=== PATIENT | female | born 1940 | race Asian ===

== ENCOUNTER 2021-12-31 22:48 | Inpatient (IN) | payer MEDICARE ==
[~2021-12-31] VITALS: Ht 152.4 cm; Wt 58.1 kg
[~2021-12-31 22:48] MED LIST: AMIN30LI2 GT; APIX2.5T GT; ATOR10TA68 GT; DOCU-144 GT; DORZ10DR9 LEFT EYE; FAMO-279 GT; INSU100V7 SUBCUT; INSU100V9 SQ; LEVO88TA2 GT; LISI-209 GT; METO25TA6 GT; NEO/5DRO3 OP; SENN8.6T19 GT; SODI325T GT; TRAZ-250 GT; VENL50TA4 PO
[2021-12-31 23:10] VITALS: BP_SYST 129
[2022-01-01] MEDS ORDERED: NACL 0.9% 1,000 ML IV SCH (01:15)
[2022-01-01] MEDS ORDERED: PIPERACILLIN/TAZO 3.38 GM in D5W 50 ML IV ONE (01:15)
[2022-01-01] MEDS ORDERED: VANCOMYCIN HCL 1,000 MG in D5W 250 ML IV ONE (01:15)
--- NOTE | 2022-01-01 01:38 | NUR ---
Placed in room 2 . Placed on traffic monitor specialist, blood pressure machine and pulse oximeter. To gown for exam. Side rails up. Report given to Wanda ESPINOZA.
--- NOTE | 2022-01-01 01:40 | NUR ---
LAZARO Guzman at bedside examining patient.
[2022-01-01 01:54] LABS: BASOPHILS # (AUTO) 0.1 K/uL (0.0-0.2); BASOPHILS % (AUTO) 0.7 % (0.0-2.0); EOSINOPHILS # (AUTO) 0.2 K/uL (0.0-0.4); EOSINOPHILS % (AUTO) 2.2 % (0.0-4.0); HEMATOCRIT 36.2 % (36-48); HEMOGLOBIN 11.8 g/dL (12.0-16.0); LYMPHOCYTES # (AUTO) 1.7 K/uL (1.0-5.5); MEAN CORPUSCULAR HEMOGLOBIN 23 pg (27-31); MEAN CORPUSCULAR HGB CONC 33 % (32-36); MEAN CORPUSCULAR VOLUME 72 fL (79.0-98.0); MONOCYTES # (AUTO) 1.2 K/uL (0.0-1.0); MONOCYTES % (AUTO) 16.9 % (1.7-9.3); NEUTROPHILS # (AUTO) 4.1 K/uL (1.8-7.7); NEUTROPHILS % (AUTO) 56.2 % (40.0-70.0); PLATELET COUNT (AUTO) 258 K/uL (130-430); RED BLOOD CELL COUNT(AUTO) 5.03 MIL/uL (4.2-6.2); RED CELL DISTRIBUTION WIDTH 13.7 % (9.0-15.0); WHITE BLOOD COUNT (AUTO) 7.3 K/uL (4.8-10.8)
[2022-01-01 02:11] LABS: ANION GAP 6 (5-15); CALCIUM 7.9 mg/dL (8.4-11.0); CHLORIDE 101 mmol/L (98-107); CREATININE 0.99 mg/dL (0.55-1.30); GLUCOSE 113 mg/dL (70-99); POTASSIUM 4.3 mmol/L (3.5-5.1); SODIUM SERUM 135 mmol/L (136-145); UREA NITROGEN, BLOOD 30 mg/dL (8-21)
[2022-01-01 02:20] LABS: ALANINE AMINOTRANSFERASE 15 U/L (12-78); ALBUMIN 2.1 g/dL (3.4-4.8); ASPARTATE AMINOTRANSFERASE 15 U/L (10-37); TOTAL BILIRUBIN 0.3 mg/dL (0.0-1.0)
--- NOTE | 2022-01-01 02:42 | NUR ---
PLACED PT ON MONITOR, WITH P OX TO LEFT EAR/ PT HANDS CONTRACTED UNABLE TO PLACE ON FINGER/PT PRESENTED FROM FACILITY WITH COMPLAINT OF BLISTERING BALATERAL TO ARMS. PT VS ARE WITHIN NORMAL LIMITS. PT IS NON-VERBAL BUT DOES RESPOND TO YES/NO QUESTIONS/PT DID NOD THAT SHE WAS NOT IN ANYPAIN. BED IS LOWERED, LOCKED, AND RAILS UP.
[2022-01-01] MEDS ORDERED: KCL 20 mEq in D5/0.45NS 1000mL 1,000 ML IV ONE (03:15)
[2022-01-01] MEDS ORDERED: VANCOMYCIN HCL 1,000 MG in NS 250 ML IV SCH (03:15)
[2022-01-01] MEDS ORDERED: PIPERACILLIN/TAZO 3.375 GM in NS 50 ML IV ONE (03:15)
[2022-01-01] MEDS ORDERED: LIP10 GT (03:42)
[2022-01-01] MEDS ORDERED: ACET325T PO (03:42)
[2022-01-01] MEDS ORDERED: DORZ1DRO5 LEFT EYE (03:42)
[2022-01-01] MEDS ORDERED: DOCU-156 GT (03:42)
[2022-01-01] MEDS ORDERED: APIX2.5T GT (03:42)
--- NOTE | 2022-01-01 03:48 | NUR ---
# 18 gauge angiocath placed to . Use of asceptic technique. Opsite placed over site. Blood return noted. Blood for lab drawn from site. Flushed with 10 cc of normal saline. No evidence of infiltration noted. Patient tolerated well.
[2022-01-01] MEDS ORDERED: LEVO100V IV (03:55)
[2022-01-01] MEDS ORDERED: INSU100V9 SQ (03:55)
[2022-01-01] MEDS ORDERED: METO-442 PO (03:55)
[2022-01-01] MEDS ORDERED: SSREG SUBCUT (03:55)
[2022-01-01] MEDS ORDERED: FAMO20TA8 GT (03:55)
[2022-01-01] MEDS ORDERED: NUT.237L30 GT (03:55)
--- NOTE | 2022-01-01 03:55 | NUR ---
Admit bed requested Patient will be admitted to care of [[facility]]. Admitted to [MED SURG] unit. Diagnosis [CELLULITIS] Inpatient (Yes or No) [Y] Observation (Yes or No) [N] Orientation concerns or request close to nursing station (Yes or No) [NO] Covid Status [NEG] On vent or bipap [NO] Isolation requirements [NO] Needs a sitter [NO] From Home (Yes or if No enter name of facility) [NO, [facility]] Requires Dialysis (Yes or No) [NO] Med Rec Completed (Yes of No) [NO]
[2022-01-01] MEDS ORDERED: PIPERACILLIN/TAZOBACTAM 3.375 GM/VIAL (ZOSYN) IV ONE (04:28)
[2022-01-01] MEDS ORDERED: dilTIAZem HCL IVP 5 MG/ML VIAL IVP ONE (05:30)
[2022-01-01] MEDS: NACL 0.9% 1,000 ML IV SCH ×5 (06:42→09:30)
--- NOTE | 2022-01-01 07:15 | NUR ---
Report received from Karl ESPINOZA to assume care of patient.
--- NOTE | 2022-01-01 07:30 | NUR ---
Pt thoroughly cleaned and full linen changed. Pt with eyes spontaneously open, moans when moved, otherwise is incomprehensible. VSS on night monitor; HR remains elevated. Pt awaiting tele bed; will continue to monitor closely. Addendum: 01/01/22 at 1225 by SDEDJT *MS*
--- NOTE | 2022-01-01 07:30 | NUR ---
Optifoam dressing applied to open area on buttock when cleaned and changed.
--- NOTE | 2022-01-01 08:03 | NUR ---
Dr Campbell paged to clarify NS order; was ordered every hour as opposed to times one.
--- NOTE | 2022-01-01 08:08 | NUR ---
NS order clarified; maintenance fluid to be given per previous order.
[2022-01-01] MEDS ORDERED: PRED20TA PO (08:31)
--- NOTE | 2022-01-01 08:32 | NUR ---
Medication reconciliation completed with information provided by list from [facility]. Any prior medication reconciliation on file was reviewed and corrected.
--- NOTE | 2022-01-01 10:13 | NUR ---
Pt placed on 3 L nasal cannula oxygen re low oxygen saturation. SpO2 now 98%.
--- NOTE | 2022-01-01 12:23 | NUR ---
Pt resting in bed. NAD noted. VSS on lunchroom monitor. Pt continues to await *MS* bed. Will continue to monitor closely.
--- NOTE | 2022-01-01 12:39 | NUR ---
Dr Campbell to bedside to evaluate pt
[2022-01-01] MEDS ORDERED: INSULIN REGULAR, HUMAN 100 UNITS/ML, 10 ML VIAL (humuLIN R) SUBCUT PRN (13:00)
[2022-01-01] MEDS ORDERED: ACETAMINOPHEN 650 MG/20.3 ML UDC GT PRN (13:15)
[2022-01-01] MEDS ORDERED: PRAMOXINE HCL/CALAMINE 177 ML LOTION TP PRN (13:15)
--- NOTE | 2022-01-01 15:25 | NUR ---
ADMISSION NOTE Received patient from ER via gurney. Patient admitted with diagnosis of Cellulitis. Patient is awake, alert, oriented X 0. Patient oriented to hospital room, call light, toileting, pain management and safety-teach back done. Patient informed that their room number is 107A. Personal belongings checked and Belongings List documented. Call light within reach.
--- NOTE | 2022-01-01 15:30 | NUR ---
Pt taken to rm 107A via raul with RN.
[2022-01-01] MEDS: NEO/POLYMYX B SULF/DEXAMETH 5 ML OPHT. DROPS.SUSP OP SCH (15:55)
[2022-01-01] MEDS: MICAFUNGIN SODIUM 100 MG in NS 100 ML IV SCH (15:56)
[2022-01-01 16:00] VITALS: BP_SYST 125
--- NOTE | 2022-01-01 16:13 | NUR ---
CONSULTATION PAGED/CALLED Reason for Consultation: [] UPPER AND LOWER EXTREMITIES INFECTED WOUND Person Who was Notified: [] GERONIMO Consulting Physician: [] DR WATERS Stone Trimmer Specialty: [] ID Ordering Physician: [] DR GREGG
[2022-01-01] MEDS: INSULIN REGULAR, HUMAN 100 UNITS/ML, 10 ML VIAL (humuLIN R) SUBCUT PRN (18:36)
--- NOTE | 2022-01-01 18:50 | NUR ---
CLOSING NOTES: PATIENT RESTING IN BED. BREATHING EVEN AND NON LABORED TO RA. PHOTO TAKEN. WOUND CARE DONE. G TUBE AND IV INFUSING WELL. BED LOCKED, ALARM ON AND IN LOWEST POSITION. CALL LIGHT WITHIN REACH.
[2022-01-01 20:00] VITALS: BP_SYST 129
[2022-01-01] MEDS ORDERED: DORZOLAMIDE 2% OPHTHALMIC SOLN 5ML OP SCH (21:00)
[2022-01-01] MEDS: DOCUSATE SODIUM 100 MG/10 ML UDC GT SCH (21:25)
[2022-01-01] MEDS: ATORVASTATIN 10 MG TABLET GT SCH (21:26)
[2022-01-01] MEDS: SENNOSIDES 8.6 MG TABLET GT SCH (21:26)
[2022-01-01] MEDS: SODIUM BICARBONATE 650 MG TABLET GT SCH (21:27)
[2022-01-01] MEDS: APIXABAN 2.5 MG TABLET GT SCH (21:30)
[2022-01-01] MEDS: METOPROLOL TARTRATE 25 MG TABLET GT SCH (21:32)
[2022-01-01] MEDS: DORZOLAMIDE HCL/TIMOLOL MAL. 10 ML EYE DROPS (COSOPT) LEFT EYE SCH (22:00)
[2022-01-01] MEDS: traZODone HCL 50 MG TABLET (DESYREL) GT SCH (22:00)
[2022-01-02] MEDS: NEO/POLYMYX B SULF/DEXAMETH 5 ML OPHT. DROPS.SUSP OP SCH ×4 (01:00→22:09)
[2022-01-02] MEDS: traZODone HCL 50 MG TABLET (DESYREL) GT SCH ×2 (01:12→21:44)
[2022-01-02] MEDS: INSULIN GLARGINE 100 UNITS/ML 10 ML VIAL SQ SCH ×2 (01:19→21:00)
[2022-01-02] MEDS: INSULIN REGULAR, HUMAN 100 UNITS/ML, 10 ML VIAL (humuLIN R) SUBCUT PRN ×3 (01:28→17:05)
[2022-01-02] MEDS: VANCOMYCIN HCL 1,000 MG in NS 250 ML IV SCH (06:54)
[2022-01-02] MEDS: LEVOTHYROXINE SODIUM 0.088 MG TABLET GT SCH (06:58)
[2022-01-02 07:23] LABS: BASOPHILS # (AUTO) 0.1 K/uL (0.0-0.2); BASOPHILS % (AUTO) 1.2 % (0.0-2.0); EOSINOPHILS # (AUTO) 0.4 K/uL (0.0-0.4); EOSINOPHILS % (AUTO) 7.5 % (0.0-4.0); HEMATOCRIT 33.7 % (36-48); HEMOGLOBIN 10.8 g/dL (12.0-16.0); LYMPHOCYTES % (AUTO) 17.4 % (20.5-51.5); MEAN CORPUSCULAR HEMOGLOBIN 23 pg (27-31); MEAN CORPUSCULAR HGB CONC 32 % (32-36); MEAN CORPUSCULAR VOLUME 73 fL (79.0-98.0); MONOCYTES # (AUTO) 0.8 K/uL (0.0-1.0); MONOCYTES % (AUTO) 13.9 % (1.7-9.3); NEUTROPHILS # (AUTO) 3.4 K/uL (1.8-7.7); PLATELET COUNT (AUTO) 247 K/uL (130-430); RED BLOOD CELL COUNT(AUTO) 4.64 MIL/uL (4.2-6.2); RED CELL DISTRIBUTION WIDTH 13.7 % (9.0-15.0); WHITE BLOOD COUNT (AUTO) 5.7 K/uL (4.8-10.8)
[2022-01-02 07:25] VITALS: BP_SYST 143
[2022-01-02 07:47] LABS: ANION GAP 5 (5-15); CALCIUM 7.3 mg/dL (8.4-11.0); CHLORIDE 105 mmol/L (98-107); CREATININE 0.98 mg/dL (0.55-1.30); GLUCOSE 142 mg/dL (70-99); POTASSIUM 4.1 mmol/L (3.5-5.1); SODIUM SERUM 135 mmol/L (136-145); UREA NITROGEN, BLOOD 22 mg/dL (8-21)
[2022-01-02] MEDS ORDERED: PROTEIN HYDROLYS GT SCH (09:00)
[2022-01-02] MEDS ORDERED: AMINO ACIDS GT SCH (09:00)
[2022-01-02] MEDS: METOPROLOL TARTRATE 25 MG TABLET GT SCH ×2 (10:26→21:47)
[2022-01-02] MEDS: DOCUSATE SODIUM 100 MG/10 ML UDC GT SCH ×2 (10:26→21:43)
[2022-01-02] MEDS: SODIUM BICARBONATE 650 MG TABLET GT SCH ×2 (10:26→21:47)
[2022-01-02] MEDS: predniSONE 20 MG TABLET GT SCH (10:27)
[2022-01-02] MEDS: lisinopriL 5 MG TABLET GT SCH (10:27)
[2022-01-02] MEDS: APIXABAN 2.5 MG TABLET GT SCH ×2 (10:28→21:45)
[2022-01-02] MEDS: FAMOTIDINE 20 MG TABLET GT SCH (10:36)
[2022-01-02] MEDS: DORZOLAMIDE HCL/TIMOLOL MAL. 10 ML EYE DROPS (COSOPT) LEFT EYE SCH ×2 (10:40→22:10)
[2022-01-02] MEDS: VENLAFAXINE HCL 50 MG TABLET PO SCH (11:00)
[2022-01-02 12:40] VITALS: BP_SYST 145
[2022-01-02 16:10] VITALS: BP_SYST 148
[2022-01-02] MEDS: MICAFUNGIN SODIUM 100 MG in NS 100 ML IV SCH (16:51)
[2022-01-02] MEDS: CEFEPIME 2 GM in D5W 100 ML IV SCH (19:47)
[2022-01-02] MEDS ORDERED: CEFEPIME 2 GM in D5W 100 ML IV SCH (21:00)
[2022-01-02] MEDS: ATORVASTATIN 10 MG TABLET GT SCH (21:46)
[2022-01-02] MEDS: SENNOSIDES 8.6 MG TABLET GT SCH (21:47)
[2022-01-03 01:27] VITALS: BP_SYST 143
[2022-01-03] MEDS: NEO/POLYMYX B SULF/DEXAMETH 5 ML OPHT. DROPS.SUSP OP SCH ×4 (06:07→22:00)
[2022-01-03] MEDS: LEVOTHYROXINE SODIUM 0.088 MG TABLET GT SCH (06:07)
[2022-01-03] MEDS: VANCOMYCIN HCL 1,000 MG in NS 250 ML IV SCH (06:09)
[2022-01-03 06:40] LABS: BASOPHILS % (AUTO) 0.6 % (0.0-2.0); EOSINOPHILS # (AUTO) 0.2 K/uL (0.0-0.4); EOSINOPHILS % (AUTO) 3.2 % (0.0-4.0); HEMATOCRIT 34.1 % (36-48); LYMPHOCYTES # (AUTO) 1.2 K/uL (1.0-5.5); LYMPHOCYTES % (AUTO) 15.2 % (20.5-51.5); MEAN CORPUSCULAR HEMOGLOBIN 23 pg (27-31); MEAN CORPUSCULAR HGB CONC 32 % (32-36); MEAN CORPUSCULAR VOLUME 72 fL (79.0-98.0); MONOCYTES # (AUTO) 0.8 K/uL (0.0-1.0); MONOCYTES % (AUTO) 9.9 % (1.7-9.3); NEUTROPHILS # (AUTO) 5.5 K/uL (1.8-7.7); NEUTROPHILS % (AUTO) 71.1 % (40.0-70.0); PLATELET COUNT (AUTO) 253 K/uL (130-430); RED BLOOD CELL COUNT(AUTO) 4.71 MIL/uL (4.2-6.2); WHITE BLOOD COUNT (AUTO) 7.7 K/uL (4.8-10.8)
[2022-01-03 07:45] LABS: ANION GAP 7 (5-15); CALCIUM 8.2 mg/dL (8.4-11.0); CHLORIDE 103 mmol/L (98-107); CREATININE 0.83 mg/dL (0.55-1.30); GLUCOSE 159 mg/dL (70-99); SODIUM SERUM 134 mmol/L (136-145); UREA NITROGEN, BLOOD 16 mg/dL (8-21)
[2022-01-03 08:00] VITALS: BP_SYST 131
--- NOTE | 2022-01-03 08:00 | NUR ---
Morning notes: Pt A/Ox2 resting in bed, no s/s of respiratory or cardiac distress. L IJ IV site is clean, dry and intact. Gtube dressing is clean, dry and intact, with ordered feeding running, no residual. Left and Right arm dressings are clean dry and intact. Fall and safety precautions in place, call light with in reach, will continue to monitor.
[2022-01-03] MEDS: VENLAFAXINE HCL 50 MG TABLET PO SCH (10:14)
[2022-01-03] MEDS: SODIUM BICARBONATE 650 MG TABLET GT SCH ×2 (10:15→22:06)
[2022-01-03] MEDS: predniSONE 20 MG TABLET GT SCH (10:16)
[2022-01-03] MEDS: lisinopriL 5 MG TABLET GT SCH (10:16)
[2022-01-03] MEDS: METOPROLOL TARTRATE 25 MG TABLET GT SCH ×2 (10:17→22:07)
[2022-01-03] MEDS: FAMOTIDINE 20 MG TABLET GT SCH (10:17)
[2022-01-03] MEDS: DOCUSATE SODIUM 100 MG/10 ML UDC GT SCH ×2 (10:17→22:06)
[2022-01-03] MEDS: APIXABAN 2.5 MG TABLET GT SCH ×2 (10:18→22:07)
[2022-01-03] MEDS: DORZOLAMIDE HCL/TIMOLOL MAL. 10 ML EYE DROPS (COSOPT) LEFT EYE SCH ×2 (10:25→21:00)
--- NOTE | 2022-01-03 12:05 | NUR ---
Discharge Planning: DCP faxed pt referral to [facility] [phone] DCP to follow up
[2022-01-03 12:08] VITALS: BP_SYST 134
[2022-01-03] MEDS: INSULIN REGULAR, HUMAN 100 UNITS/ML, 10 ML VIAL (humuLIN R) SUBCUT PRN ×3 (12:29→23:46)
--- NOTE | 2022-01-03 13:58 | NUR ---
Dietitian Recommendations * Glucerna 1.2 at 50 ml/hr, Ross BID, Free Water Flush: 150 ml Q6h via GT Provides: 1600 kcal/day, 77 gm protein/day, and 1566 ml free water/day Meets: 96% of upper end of estimated caloric needs, 104% of upper end of estimated protein needs, and 104% of lower end of estimated fluid needs LP, RD Please refer to Nutrition Assessment for details. Addendum: 01/03/22 at [address] Amended: Links added.
[2022-01-03 16:08] VITALS: BP_SYST 136
[2022-01-03] MEDS: MICAFUNGIN SODIUM 100 MG in NS 100 ML IV SCH (16:13)
--- NOTE | 2022-01-03 18:50 | NUR ---
Closing notes: Pt A/Ox2 resting in bed, no s/s of respiratory or cardiac distress. L IJ IV site is clean, dry and intact. Gtube dressing is clean, dry and intact, with ordered feeding running, no residual. Left and Right arm dressings are clean dry and intact. Fall and safety precautions in place, call light with in reach, will endorse to retail shift leader.
--- NOTE | 2022-01-03 19:15 | NUR ---
OPENING NOTE REPORT RECEIVED FROM DAYSHIFT NURSE. PATIENT RECEIVED LYING IN BED, AWAKE, WATCHING TV, NO S/S OF ACUTE DISTRESS. BREATHING IS EVEN AND UNLABORED. HOB RAISED. IV PATENT, NO SIGNS OF INFILTRATION OR INFECTION NOTED. TUBE FEEDING INFUSING WELL. SKIN WARM AND DRY TO TOUCH. NO S/S OF HYPOGLYCEMIA NOTED. CALL LIGHT WITH PATIENT. BED ALARM ON. BED IS LOCKED AND AT LOWEST POSITION. WILL CONTINUE TO MONITOR.
[2022-01-03] MEDS: CEFEPIME 2 GM in D5W 100 ML IV SCH (19:57)
[2022-01-03 20:00] VITALS: BP_SYST 150
[2022-01-03] MEDS: traZODone HCL 50 MG TABLET (DESYREL) GT SCH (22:06)
[2022-01-03] MEDS: SENNOSIDES 8.6 MG TABLET GT SCH (22:06)
[2022-01-03] MEDS: ATORVASTATIN 10 MG TABLET GT SCH (22:07)
[2022-01-03] MEDS: INSULIN GLARGINE 100 UNITS/ML 10 ML VIAL SQ SCH (22:20)
[2022-01-04 00:45] VITALS: BP_SYST 141
[2022-01-04] MEDS: NEO/POLYMYX B SULF/DEXAMETH 5 ML OPHT. DROPS.SUSP OP SCH ×2 (05:58→15:31)
[2022-01-04] MEDS: VANCOMYCIN HCL 1,000 MG in NS 250 ML IV SCH (06:03)
[2022-01-04] MEDS: LEVOTHYROXINE SODIUM 0.088 MG TABLET GT SCH (06:03)
[2022-01-04 06:22] LABS: BASOPHILS % (AUTO) 0.5 % (0.0-2.0); EOSINOPHILS # (AUTO) 0.3 K/uL (0.0-0.4); EOSINOPHILS % (AUTO) 4.5 % (0.0-4.0); HEMATOCRIT 35.8 % (36-48); HEMOGLOBIN 11.6 g/dL (12.0-16.0); LYMPHOCYTES # (AUTO) 1.1 K/uL (1.0-5.5); LYMPHOCYTES % (AUTO) 17.4 % (20.5-51.5); MEAN CORPUSCULAR HEMOGLOBIN 24 pg (27-31); MEAN CORPUSCULAR HGB CONC 33 % (32-36); MEAN CORPUSCULAR VOLUME 72 fL (79.0-98.0); MONOCYTES # (AUTO) 0.7 K/uL (0.0-1.0); MONOCYTES % (AUTO) 10.6 % (1.7-9.3); NEUTROPHILS # (AUTO) 4.3 K/uL (1.8-7.7); PLATELET COUNT (AUTO) 274 K/uL (130-430); RED BLOOD CELL COUNT(AUTO) 4.95 MIL/uL (4.2-6.2); RED CELL DISTRIBUTION WIDTH 13.9 % (9.0-15.0); WHITE BLOOD COUNT (AUTO) 6.4 K/uL (4.8-10.8)
--- NOTE | 2022-01-04 06:28 | NUR ---
CLOSING NOTE PATIENT IN BED, RESTING, NO S/S OF ACUTE DISTRESS NOTED. BREATHING EVEN AND UNLABORED. HOB RAISED. IV SITE PATENT, NO SIGNS OF INFILTRATION OR INFECTION NOTED. TUBE FEEDING INFUSING WELL. SKIN WARM AND DRY TO TOUCH. ALL NEEDS MET THROUGHOUT SHIFT. FALL, SAFETY PRECAUTIONS MAINTAINED THROUGHOUT SHIFT. WILL CONTINUE TO MONITOR UNTIL PATIENT CARE IS ENDORSED TO ONCOMING DAYSHIFT NURSE.
[2022-01-04 06:45] LABS: ALANINE AMINOTRANSFERASE 17 U/L (12-78); ALBUMIN 1.9 g/dL (3.4-4.8); ANION GAP 5 (5-15); ASPARTATE AMINOTRANSFERASE 20 U/L (10-37); CALCIUM 8.5 mg/dL (8.4-11.0); CHLORIDE 101 mmol/L (98-107); CREATININE 0.96 mg/dL (0.55-1.30); GLUCOSE 150 mg/dL (70-99); POTASSIUM 3.8 mmol/L (3.5-5.1); SODIUM SERUM 135 mmol/L (136-145); TOTAL BILIRUBIN 0.3 mg/dL (0.0-1.0); UREA NITROGEN, BLOOD 15 mg/dL (8-21)
[2022-01-04] MEDS: DORZOLAMIDE HCL/TIMOLOL MAL. 10 ML EYE DROPS (COSOPT) LEFT EYE SCH (09:00)
[2022-01-04] MEDS: DOCUSATE SODIUM 100 MG/10 ML UDC GT SCH (10:17)
[2022-01-04] MEDS: METOPROLOL TARTRATE 25 MG TABLET GT SCH (10:18)
[2022-01-04] MEDS: SODIUM BICARBONATE 650 MG TABLET GT SCH (10:18)
[2022-01-04] MEDS: FAMOTIDINE 20 MG TABLET GT SCH (10:19)
[2022-01-04] MEDS: lisinopriL 5 MG TABLET GT SCH (10:19)
[2022-01-04] MEDS: APIXABAN 2.5 MG TABLET GT SCH (10:20)
[2022-01-04] MEDS: predniSONE 20 MG TABLET GT SCH (10:29)
[2022-01-04] MEDS: VENLAFAXINE HCL 50 MG TABLET PO SCH (10:29)
[2022-01-04 12:00] VITALS: BP_SYST 145
[2022-01-04] MEDS: INSULIN REGULAR, HUMAN 100 UNITS/ML, 10 ML VIAL (humuLIN R) SUBCUT PRN (12:30)
[2022-01-04] MEDS: MICAFUNGIN SODIUM 100 MG in NS 100 ML IV SCH (15:30)
--- NOTE | 2022-01-04 15:30 | NUR ---
Nutrition Consult RD received Nutrition Consult 01/04/22 1528 d/t Multiple Wounds/Blisters, PU x4. Pt was assessed by RD for initial Nutrition Assessment yesterday, 01/03. Please refer to note for details. RD to continue to follow as per nutrition care standards.
--- NOTE | 2022-01-04 15:34 | NUR ---
WOUND EVALUATION: Wound Consult received from Dr. Campbell. Thank you, Dr. Campbell, for the consult. Patient received in a Chester Bed with an IsoFlex BRAYAN mattress, awake, alert, confused. Patient is unable to turn in bed independently. Dhruv Score is a 14. Past Medical History: Diabetes Mellitus, Chronic Encephalopathy, Breast Cancer, Hypertension, Neurological disorder, Functional Quadriplegia, bilateral Mastectomy, G-tube placement, Rheumatoid Arthritis; Dysphagia, on G-tube feeding; Hypothyroidism, who presented to the Emergency Room with infection of feeding, chronic Cellulitis of the Upper and Lower Extremities. Recent Labs: WBC 6.4, RBC 4.95, hemoglobin 11.6, hematocrit 35.8, BUN 15, creatinine 0.96, glucose 150, POC glucose 164, albumin 1.9. Microbiology: Blood culture results x2 in progress. MRSA screen results negative. Intrinsic factors that delay wound healing: Diabetes Mellitus, Aspiration Pneumonia, Chronic Encephalopathy, Neurological disorder. Extrinsic factors that delay wound healing: Immobility due to Functional Quadriplegia. Patient was admitted with multiple, multiple prior blister sites, suspect possible condition of Bullous pemphigus. Wound Assessment: 1. Left Dorsal Lateral Fifth Toe: Chronic dry open blister site with dark discolored skin, present on admission no odor, no drainage. 2. Left Great Toe: Chronic dry open blister site with dark discolored skin, present on admission no odor, no drainage. 3. Left Dorsal Foot: Chronic dry open blister site with dark discolored skin and a brown scab/eschar, present on admission no odor, no drainage. Recommend: Cover sites with non-adherent pads and wrap with angela wrap. Change dressing and assess sites q3days, and as needed for dressing soiling or dislodgment. 4. Left Plantar Foot: Five open dry chronic blister sites, one dry chronic blister site with dark discoloration, present on admission. 5. Left Lateral Calf/Lower Extremity: Multiple chronic dry blister sites with 10% pink scar tissue and 90% black scab/eschar no odor, no drainage. Dry, stable. Recommend: Cover sites with non-adherent pads and wrap with angela wrap. Change dressing and assess sites q3days, and as needed for dressing soiling or dislodgment. 6. Left Knee: Chronic dry open blister site with 90% dark discolored skin, and 10% pink scar tissue, present on admission. No odor, no drainage. 7. Left Proximal Anterior Medial Thigh: Multiple open dry chronic blister sites with black scabs/eschar, present on admission. Recommend: Cover sites with non-adherent pads and wrap with angela wrap. Change dressing and assess sites q3days, and as needed for dressing soiling or dislodgment. 8. Left Calcaneus/Achilles areas: Large closed blister with dark discolored fluid, present on admission. Site measures 1.5 cm x 3.3 cm. Recommend: Cover site loosely with foam dressing for protection. Change dressing and assess site every 3 days and as needed for dressing soiling or dislodgment. 9. Right Anterior, Medial and Lateral Thigh: Multiple blister sites with black scabs/eschar (20%), pink scar tissue (50%), and red tissue (30%). No odor, scant red drainage. Site measures 19.0 cm x 22.0 cm. Recommend: Cleanse site with normal saline. Apply SurePrep to perimeter of blister sites. Apply Venelex ointment to open areas. Cover site with nonadhesive foam dressing. Wrap loosely with Angela wrap. Perform site care daily, and as needed for dressing soiling or dislodgement. 10. Right Mid Funez: Multiple black scabs/eschar from dried open blisters, present on admission. Recommend: No dressings needed. Continue to monitor sites closely. 11. Right Upper Extremity from Superior Bicep area to Proximal Forearm area, including Lateral and Medial aspects: Multiple areas of black scabs/eschar from chronic open blisters, multiple areas of non-intact skin with red tissue, and multiple areas of pink scar tissue, present on admission. Entire site measures 23.0 cm x 16.5 cm. 12. Right Posterior Bicep: Multiple areas of black scabs/eschar from chronic dry open blisters, multiple areas of non-intact skin with red tissue, present on admission. Entire site measures 9.3 cm x 12.0 cm. 13. Right Posterior Forearm: Multiple areas of black scabs/eschar from chronic dry open blisters, multiple areas of non-intact skin with red tissue, present on admission. Entire site measures 27.0 cm x 6.0 cm. 14. Right Lateral Forearm: Large blister area with with multiple black scabs/eschar some open with red tissue (80%), and red colored skin (20%). No odor, scant red drainage. Site measures 19.0 cm x 5.0 cm. Recommend: Cleanse sites with normal saline. Apply SurePrep to perimeter of blister sites. Apply Venelex ointment to open areas. Cover site with nonadhesive foam dressing. Wrap loosely with Angela wrap. Perform site care daily, and as needed for dressing soiling or dislodgement. 15. Right Palmar Hand: Large open blister with black skin (visible wound tissue has 90% yellow tissue, 10% red tissue). No odor, scant yellow drainage. 16. 2nd Finger Tip: Chronic dry open blister site with black scab/eschar, present on admission. Dry, stable. 17. 3rd Palmar Finger Chronic dry open blister site with black scab/eschar, present on admission. Dry, stable. 18. 4th Palmar Finger Chronic dry open blister site with black scab/eschar, present on admission. Dry, stable. 19. Dorsal Wrist/Thumb: Chronic dry open blister site with black scab/eschar, present on admission. Dry, stable. 20. Dorsal 2nd Finger: Chronic dry open blister site with black scab/eschar, present on admission. Dry, stable. 21. Dorsal 5th Finger: Chronic dry open blister site with black scab/eschar, present on admission. Dry, stable. Recommend: Cover sites with non-adherent pads and wrap with angela wrap. Change dressing and assess sites q3days, and as needed for dressing soiling or dislodgment. 22. Left Medial Distal Bicep: Large open blister area with 70% dark red tissue, 20% pink tissue, 10% dark discolored tissue. No odor, scant red drainage. Site measures 2.5 cm x 3.7 cm. 23. Left Medial Epicondyle, Inferior to Site 22: Serous filled closed blister, present on admission. 24. Left Lateral Forearm: Large open bulla with 80% red tissue, 20% black scab/eschar. No odor, scant sanguineous drainage. Blister measures 2.9 cm x 3.0 cm. Recommend: Cleanse open areas with normal saline. Apply Sureprep to periwound and perimeter of closed blister. Cover sites with nonadhesive foam dressings. Wrap with Angela wrap. Perform site care daily, and as needed for dressing soiling or dislodgment. 25. Left Lateral Forearm, inferior to site 24: Large chronic dry open blister site with black scab/eschar, present on admission. No odor, no drainage. 26. Left Lateral Distal Wrist, inferior to site 25: Large chronic dry open blister site with black scab/eschar, present on admission. No odor, no drainage. Recommend: Cover sites with non-adherent pads and wrap with angela wrap. Change dressing and assess sites q3days, and as needed for dressing soiling or dislodgment. 27. Right Medial Buttock (Intergluteal Cleft): Stage III pressure ulcer, present on admission. Open areas have 75% red tissue, 20% yellow tissue, 5% dark discolored tissue with white scar tissue surrounding open areas and in between open areas. Site runs from middle of cleft area down to Posterior Proximal Thigh area. Site measures 14.8 cm x 12.0 cm. 28. Right Buttock/Ischium/Posterior Proximal Thigh: Pressure ulcer of prior unknown stage, present on admission. Open area has 100% red tissue with pink scar tissue surrounding open areas and in between open areas. Site measures 2.5 cm x 1.7 cm. 29. Left Medial Buttock (Intergluteal Cleft)/Posterior Proximal Thigh: Prior unstageable pressure ulcer, present on admission. Open areas have 100% red tissue with white scar tissue surrounding open areas and in between open areas. Site runs from middle of cleft area down to Posterior Proximal Thigh area. Site measures 12.0 cm x 8.0 cm. Recommend: Cleanse sites with normal saline. Pat dry. Apply moisture barrier cream to periwounds. Apply Venelex ointment to open wound areas. Over site with nonadhesive foam dressings, secure with transparent dressings. Perform site care daily, and as needed for dressing soiling or dislodgement. 25. Bilateral Inguinal/Perineal areas: Erythema, pink scar tissue and non-intact skin from IAD/MASD, present on admission. Recommend: Cleanse involved areas with mild soap and water. Apply Calmoseptine cream to involved areas. Perform site care 4 times daily and as needed for soiling. 26. Left Dorsal Hand: Chronic dry open blister site with black scab/eschar, present on admission. No odor, no drainage. 27. Left Second Finger, Dorsal/Lateral aspects: Chronic dry open blister site with black scab/eschar, present on admission. No odor, no drainage. 28. Left Fourth Lateral Distal Finger: Chronic dry open blister site with black scab/eschar, present on admission. No odor, no drainage. Recommend: Cover sites with non-adherent pads and wrap with angela wrap. Change dressing and assess sites q3days, and as needed for dressing soiling or dislodgment. 29. Left Cheek: Black scab, present on admission. No odor, no drainage. Periwound intact site measures 2.1 cm x 2.3 cm Recommend: No dressing needed. Continue to monitor site qshift. Also recommend continue: Reposition patient side to side only every 2 hours with pillow support and off-load pressure areas with pillows for pressure re-distribution. Offload, elevate and float bilateral heels with one pillow underneath bottom extremity when patient is turned (ensure that ankle and feet are floating at all times), also place one pillow in between bilateral knees and ankles. When patient is lying on left side, used 2 large towel rolls (1 under knee and one superior to ankle of bottom leg instead of pillow (ensure that ankle and foot are floating at all times). Perform skin care and monitor skin integrity Q shift. Use Calmoseptine cream on buttocks and other moisture susceptible areas QID and as needed for soiling. Place patient on a P500 low air-loss mattress.
[2022-01-04 16:11] VITALS: BP_SYST 138
--- NOTE | 2022-01-04 18:55 | NUR ---
0800: PATIENT AWAKE, ALERT, ORIENTED X [address] RESPIRATION EVEN AND UNLABORED NO S/S OF ANY ACUTE DISTRESS NOTED. ALL NEEDS ASSESS Q HOURLY AND PRN. ABDOMEN SOFT AND NON-DISTENDED, HYPOACTIVE BOWEL SOUND X 4, WITH G-TUBE ONGOING FEEDING TOLERATED WELL WITH RESIDUAL LESS THAN 10 CC. MULTIPLE SKIN PROBLEM WITH NEW ORDER FOR WOUND TO ASSESS AND RECOMMENDED TX PER PROTOCOL. CONTRACTED BOTH UPPER AND LOWER EXTREMITIES. WILL CONTINUE TO REASSESS PATIENT PRN. 1400: WOUND CARE NURSE EDWARDO SAW PATIENT WILL NEW ORDER FOR WOUND CARE PER PROTOCOL. DRESSING APPLIED ORDERED.
--- NOTE | 2022-01-04 19:00 | NUR ---
DRESSING REMAINED INTACT W/O ANY BLEEDING NOTED. NO CHANGE IN LOC. ENDORSED PATIENT TO PM SHIFT NURSE.
--- NOTE | 2022-01-04 19:30 | NUR ---
PM OPENING NOTES HAND-OFF REPORT RECEIVED FROM JANETTE ESPINOZA. REPORTED: SON'S WANT TO GET UPDATE FROM MD ON PROGNOSIS IF HE COMES IN TONIGHT. ([place]). BILATERAL ARM DRESSINGS FRESH. TO CHANGE BUTTOCK DRESSING WITH EACH BM AND PRN. TUBE FEEDING GLUCERNA 1.2 @ 50 ML/HR.LEFT NECK PICC LINE INTACT AND BENIGN. IBARRA CATH TO GRAVITY FLOW CLEAR YELLOW URINE. PILLOWS FLOATING EXTREMITIES AND OFF LOADING HEELS AND ANKLES. SAFETY PRECAUTIONS MAINTAINED WITH BED IN LOWEST POSITION AND WHEELS LOCKED, CALL LIGHT WITHIN EASY REACH. CONT TO MONITOR AND PROVIDE COMFORT MEASURES. RESTING QUIETLY. NO ACUTE DISTRESS NOTED. PT ASKED "WHAT YOU DOING?" WHEN APPROACH. EXPLAIN NURSING CARE BEFORE ATTEMPTING TO ALLAY ANXIETY AND PROVIDE A MORE STRESSLESS INTERACTION.
[2022-01-04 20:00] VITALS: BP_SYST 136
--- NOTE | 2022-01-05 | NUR ---
BED BATH AND DRESSING CHANGE. AFTER B.M. PT TOL. NAVARRETE.
[2022-01-05] MEDS: CEFEPIME 2 GM in D5W 100 ML IV SCH ×2 (00:23→18:35)
[2022-01-05] MEDS: traZODone HCL 50 MG TABLET (DESYREL) GT SCH (00:25)
[2022-01-05] MEDS: DOCUSATE SODIUM 100 MG/10 ML UDC GT SCH ×2 (00:25→09:35)
[2022-01-05] MEDS: SENNOSIDES 8.6 MG TABLET GT SCH (00:26)
[2022-01-05] MEDS: ATORVASTATIN 10 MG TABLET GT SCH (00:26)
[2022-01-05] MEDS: SODIUM BICARBONATE 650 MG TABLET GT SCH ×2 (00:27→09:11)
[2022-01-05] MEDS: NEO/POLYMYX B SULF/DEXAMETH 5 ML OPHT. DROPS.SUSP OP SCH ×3 (00:29→14:00)
[2022-01-05] MEDS: DORZOLAMIDE HCL/TIMOLOL MAL. 10 ML EYE DROPS (COSOPT) LEFT EYE SCH ×2 (00:33→09:18)
[2022-01-05] MEDS: METOPROLOL TARTRATE 25 MG TABLET GT SCH ×2 (00:50→09:16)
[2022-01-05] MEDS: APIXABAN 2.5 MG TABLET GT SCH ×2 (00:54→09:12)
[2022-01-05] MEDS: INSULIN GLARGINE 100 UNITS/ML 10 ML VIAL SQ SCH (00:56)
[2022-01-05] MEDS: INSULIN REGULAR, HUMAN 100 UNITS/ML, 10 ML VIAL (humuLIN R) SUBCUT PRN ×2 (01:00→18:33)
[2022-01-05 01:11] VITALS: BP_SYST 145
[2022-01-05 04:00] VITALS: BP_SYST 144
[2022-01-05] MEDS: VANCOMYCIN HCL 1,250 MG in NS 250 ML IV SCH (06:59)
[2022-01-05] MEDS: LEVOTHYROXINE SODIUM 0.088 MG TABLET GT SCH (07:00)
--- NOTE | 2022-01-05 07:30 | NUR ---
PM CLOSING NOTES RETURNING NURSE UPDATED.NO CHANGES. MD GREGG NOT VISITING THIS SHIFT. SONS STILL NEED UPDATE ON PROGNOSIS. DRESSING CHANGE TO GTUBE SITES WITH NEW SPIKE TUBING AND IRRIGATION SET PER PROTOCOL. RELINQUISHED CARE OF PT AT THIS TIME.
[2022-01-05] MEDS: FAMOTIDINE 20 MG TABLET GT SCH (09:12)
[2022-01-05] MEDS: lisinopriL 5 MG TABLET GT SCH (09:14)
[2022-01-05] MEDS: predniSONE 20 MG TABLET GT SCH (09:16)
[2022-01-05] MEDS: BALSAM PERU/CASTOR OIL 56.7 GM OINT...G. TP SCH (09:19)
[2022-01-05] MEDS: VENLAFAXINE HCL 50 MG TABLET PO SCH (09:35)
[2022-01-05 12:30] VITALS: BP_SYST 114
[2022-01-05] MEDS: MICAFUNGIN SODIUM 100 MG in NS 100 ML IV SCH (15:43)
--- NOTE | 2022-01-05 15:43 | NUR ---
Discharge Planning: DCP followed up with pt referral to [facility] [phone] patient will go to [facility] transportation arranged with [facility] [phone] Will Call. DCP made CM and nurse aware. Patient packet taken to nurse station.
--- NOTE | 2022-01-05 19:00 | NUR ---
0800: PATIENT IS AWAKE, ALERT, ORIENTED X 1, WILL ANSWER QUESTION RANDOMLY. RESPIRATION EVEN AND UNLABORED NO S/S OF ANY ACUTE DISTRESS NOTED. WILL CONTINUE TO REASSESS NEEDS PRN. ABDOMEN SOFT AND NON-DISTENDED, POSITIVE BOWEL SOUND X 4 NO N/V OR DIARRHEA NOTED. G-TUBE IN PLACE, PATENT WITH ONGOING FEEDING TOLERATE WELL RESIDUAL LESS THAN 10 CC. SKIN WARM AND DRY WITH MULTIPLE SKIN PROBLEM, WAS SEEN BY WOUND CARE NURSE, TREATMENT INITIATED AND CONTINUE ORDERED. WILL CONTINUE TO MONITOR PATIENT. 1900: PATIENT WAS PLACED ON WILL CALL, PLANNED TO DC'D BACK TO CARE FACILITY THAT PATIENT WAS ADMITTED FROM. PICC LINE INSERTED @ BEDSIDE FOR TURBINE ENGINEER IV ANTIBIOTIC ORDERED PER DR. WATERS FOR [address] GREGG CONFERED WITH PATIENT'S SON DEA, REGARDING PATIENT OVERALL CONDITION AND PLAN OF CARE.
[2022-01-05 19:20] LABS: PROTHROMBIN TIME 10.5 SECS (9.5-12.5)
[2022-01-06] VITALS (7 sets, daily range): BP systolic 127–157
[2022-01-06] MEDS: METOPROLOL TARTRATE 25 MG TABLET GT SCH ×3 (00:53→21:00)
[2022-01-06] MEDS: SENNOSIDES 8.6 MG TABLET GT SCH ×2 (00:54→20:56)
[2022-01-06] MEDS: SODIUM BICARBONATE 650 MG TABLET GT SCH ×3 (00:54→20:57)
[2022-01-06] MEDS: ATORVASTATIN 10 MG TABLET GT SCH ×2 (00:55→20:56)
[2022-01-06] MEDS: METHYLPREDNISOLONE SOD SUCC 40 MG/ML VIAL IVP SCH ×3 (00:55→20:58)
[2022-01-06] MEDS: traZODone HCL 50 MG TABLET (DESYREL) GT SCH ×2 (00:56→21:11)
[2022-01-06] MEDS: DOCUSATE SODIUM 100 MG/10 ML UDC GT SCH ×3 (00:57→20:55)
[2022-01-06] MEDS: APIXABAN 2.5 MG TABLET GT SCH ×3 (00:58→21:02)
[2022-01-06] MEDS: NEO/POLYMYX B SULF/DEXAMETH 5 ML OPHT. DROPS.SUSP OP SCH ×4 (01:05→21:01)
[2022-01-06] MEDS: DORZOLAMIDE HCL/TIMOLOL MAL. 10 ML EYE DROPS (COSOPT) LEFT EYE SCH ×3 (01:38→21:00)
[2022-01-06] MEDS: INSULIN GLARGINE 100 UNITS/ML 10 ML VIAL SQ SCH ×2 (01:43→21:05)
[2022-01-06] MEDS: LEVOTHYROXINE SODIUM 0.088 MG TABLET GT SCH (07:30)
[2022-01-06] MEDS: VANCOMYCIN HCL 1,250 MG in NS 250 ML IV SCH (07:32)
[2022-01-06] MEDS: FAMOTIDINE 20 MG TABLET GT SCH (10:00)
[2022-01-06] MEDS: VENLAFAXINE HCL 50 MG TABLET PO SCH (10:00)
[2022-01-06] MEDS: BALSAM PERU/CASTOR OIL 56.7 GM OINT...G. TP SCH (10:00)
[2022-01-06] MEDS: lisinopriL 5 MG TABLET GT SCH (10:00)
[2022-01-06] MEDS: INSULIN REGULAR, HUMAN 100 UNITS/ML, 10 ML VIAL (humuLIN R) SUBCUT PRN ×2 (14:18→18:41)
--- NOTE | 2022-01-06 16:35 | NUR ---
WOUND CARE/PHOTOS Dressing to right medial buttocks removed, area cleansed with normal saline, moisture barrier cream applied to periwound, Venelex ointment applied to wound bed, covered with a foam dressing. Wound beds 85 % pink tissue, 10% yellow tissue, 5 % dark tissue, periwound intact, no odor, no drainage. Wound measures 14.7 cm x 12 cm. Dressing to left medial buttock removed, area cleansed with normal saline, Venelex ointment applied to wound beds, moisture barrier cream applied to periwound. Wound open areas 100% pink tissue, no odor, no drainage. Wound measures 12 cm x 8 cm. Dressing to right upper thigh removed area cleansed with normal saline, moisture barrier cream applied to periwound, Venelex ointment applied to wound beds, covered with foam dressing. Dressing to left knee removed , area cleansed with normal saline, site covered with non-adherent pad and secured with a foam dressing. Wound is 90% pink tissue and 10% dark tissue, no odor, minimum drainage. Photos taken of wounds and dry scabs BLE. Pt repositioned with pillow support.
[2022-01-06] MEDS: MICAFUNGIN SODIUM 100 MG in NS 100 ML IV SCH (17:12)
--- NOTE | 2022-01-06 17:49 | NUR ---
FACILITY CALLED Called [facility] regarding transfer to verify that the pt's room is still available, left message on DON machine to call back.
[2022-01-06] MEDS: CEFEPIME 2 GM in D5W 100 ML IV SCH (18:39)
--- NOTE | 2022-01-06 20:25 | NUR ---
2005 DISCHARGE REPORT TO BRENDAN MONTELONGO [phone]. PT SLOTTED FOR ROOM 101 WITH PICK-UP SCHEDULED FOR [facility]
--- NOTE | 2022-01-06 21:55 | NUR ---
[facility] FOR TRANSPORT TO [facility].
--- NOTE | 2022-01-07 01:50 | NUR ---
REHANA ROCKWELL CORRESPONDENCE POST DISCHARGE YOLIS, RECEIVING NURSE FROM [facility] PHONED [place] NEEDING MED LIST THAT INCLUDED IV ANTIBIOTICS CEFEPIME, VANCO AND MYCAMINE ALL OTHER MEDS WERE SHOWING ON HER DISCHARGE PACKET. UPON FURTHER EXAMINATION WITH MY CHARGE NURSE OLI IT WAS NOTED ALL IV ANTIBIOTICS WERE "ORDERED" (DC'D BY DISCHARGE). YET PROGRESS NOTES STATED: "CURRENTLY ON BROAD COVERAGE WITH IV CEFEPIME, VANCO AND MYCAMINE. C/W SAME FOR 1 MORE WEEK UPON D/C." REPORTS FAXED TO YOLIS AT [facility] AND INSTRUCTED TO FOLLOW-UP WITH STEVEN WATERS MD. FOR CLARIFICATION OF ORDER AND STRESSED "NOT" TO WAIT UNTIL SATURDAY THERE SHOULD "NOT BE A BREAK" IN THE ANTIBIOTIC THERAPY THAT HAS ALREADY BEGAN WHILE UNDER OUR CARE FOR ALL THREE OF THESE ANTIBIOTIC THERAPIES. YOLIS STATED SHE UNDERSTOOD AND AGREED. INFORMED CHARGE NURSE OLI OF FINAL CONVERSATION WITH YOLIS.
== END 2022-01-06 21:55 | DRG 602 ==
LOC: SED 22:48 → SMU 01-01 03:11
PROVIDERS: ADMIT Family Medicine; ATTEND Family Medicine
PROC: 02HV33Z Insertion of Infusion Device into Superior Vena Cava, Percutaneous Approach (ICD-10-PCS; principal; 2022-01-05)
DX: L03.114 Cellulitis of left upper limb (principal); E43 Unspecified severe protein-calorie malnutrition; J69.0 Pneumonitis due to inhalation of food and vomit; R53.2 Functional quadriplegia; L03.116 Cellulitis of left lower limb; L03.115 Cellulitis of right lower limb; L12.0 Bullous pemphigoid; E11.52 Type 2 diabetes mellitus with diabetic peripheral angiopathy with gangrene; I96 Gangrene, not elsewhere classified; L97.929 Non-pressure chronic ulcer of unspecified part of left lower leg with unspecified severity; L97.919 Non-pressure chronic ulcer of unspecified part of right lower leg with unspecified severity; L03.113 Cellulitis of right upper limb; M06.9 Rheumatoid arthritis, unspecified; I10 Essential (primary) hypertension; I48.91 Unspecified atrial fibrillation; E11.622 Type 2 diabetes mellitus with other skin ulcer; L98.499 Non-pressure chronic ulcer of skin of other sites with unspecified severity; Z20.822 Contact with and (suspected) exposure to COVID-19; G20 Parkinson's disease; E03.9 Hypothyroidism, unspecified; D64.9 Anemia, unspecified; F03.90 Unspecified dementia, unspecified severity, without behavioral disturbance, psychotic disturbance, mood disturbance, and anxiety; Z93.1 Gastrostomy status; Z79.01 Long term (current) use of anticoagulants; Z79.4 Long term (current) use of insulin; Z79.899 Other long term (current) drug therapy; Z85.3 Personal history of malignant neoplasm of breast; Z90.13 Acquired absence of bilateral breasts and nipples; Z68.25 Body mass index [BMI] 25.0-25.9, adult
CPT/HCPCS: 36415; 71045; 80048; 80053; 80202; 82962; 83605; 83735; 84484; 85025; 85610-TC; 85730-TC; 87040; 87081; 93005; 96365; 96375; 99285; J0692; J1030; J1815; J2248; J2543; J3370; J3490; J7050; J7060; J7512

== ENCOUNTER 2022-05-26 13:19 | Emergency (ER) | payer MEDICARE ==
[~2022-05-26] VITALS: Ht 152.4 cm; Wt 52.2 kg
[~2022-05-26 13:19] MED LIST changes: +ACET325T PO; +FAMO20TA8 GT; -INSU100V7 SUBCUT; +LEVO88CA4 GT; -LEVO88TA2 GT; +NUT.237L30 GT; +PRED20TA PO; +SSREG SUBCUT
--- NOTE | 2022-05-26 13:29 | NUR ---
PER MD REPORT, PT WAS SEEN AT 1329
[2022-05-26] MEDS ORDERED: GASTROGRAFIN 120 ML GT ONE (15:45)
--- NOTE | 2022-05-26 15:45 | NUR ---
PT BIB BLS FROM [facility] FOR GTUBE DISLODGEMENT. PT IS AAOX1 NON VERBAL BED BOUND. [address] OF OSTOMY[address]
[2022-05-26] MEDS ORDERED: GASTROGRAFIN 120 ML ONE (15:50)
--- NOTE | 2022-05-26 16:03 | NUR ---
Pt bedside with rn radiology Kristin administered Gastro fluid for contrast.
[2022-05-26 18:20] VITALS: BP_SYST 134
--- NOTE | 2022-05-26 19:50 | NUR ---
spoke to abraham from [facility] about patient status, and informed her about patient returning. md approved to restart feeding when patient arrives back to facility.
[2022-05-26 20:28] VITALS: BP_SYST 126
--- NOTE | 2022-05-26 20:28 | NUR ---
Patient AND EMT given written and verbal discharge instructions and verbalizes understanding. ER DR. PERSAUD discussed with patient the results and treatment provided. Patient in stable condition. ID arm band removed. Patient educated on pain management and to follow up with PMD. Pain Scale 3. Opportunity for questions provided and answered. Medication side effect fact sheet provided. PT TRANSPORTED BY [facility]
== END 2022-05-26 20:28 | disposition home or self-care (01) ==
LOC: SED 13:19
DX: K94.23 Gastrostomy malfunction (principal); Z79.4 Long term (current) use of insulin; Z79.899 Other long term (current) drug therapy
CPT/HCPCS: 99284; 43762; 74240; Q9963